=== PATIENT | male | born 1975 | race Caucasian/White ===

== ENCOUNTER 2019-07-04 15:11 | Emergency (ER) | payer BC ==
[~2019-07-04] VITALS: Ht 182.9 cm; Wt 79.3 kg
[2019-07-04 15:34] VITALS: BP 106/73
== END 2019-07-04 16:26 | disposition home or self-care (01) ==
LOC: ED 16:00
DX: R05 Cough (principal); Z20.828 Contact with and (suspected) exposure to other viral communicable diseases
CPT/HCPCS: 99281; 99283

== ENCOUNTER 2019-07-31 11:58 | Inpatient (IN) | payer BC, OTHER ==
[~2019-07-31] VITALS: Ht 182.9 cm; Wt 73.0 kg
--- NOTE | 2019-07-31 12:35 | NUR ---
PT AMBULATED WITH NORBERT FIGUEROA TO ROOM. STEADY GAIT.
--- NOTE | 2019-07-31 12:37 | NUR ---
PT PRESENTED TO ED D/T COUGH, FEVER, CHILLS. PT STATES WAS TESTED FOR COVID-19 IN JUNE AND WAS NEGATIVE. PT CURRENTLY STAYING AT [facility].
--- NOTE | 2019-07-31 12:43 | NUR ---
[facility] SWABBED PT FOR COVID-19 R/O.
--- NOTE | 2019-07-31 13:05 | NUR ---
break RN note: pt is resting on isreal romero. 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 EDTA at bedside for PIV placement.
[2019-07-31 13:23] LABS: BASOPHILS # (AUTO) 0.02 x10^3/uL (0-0.1); BASOPHILS % (AUTO) 0 % (0-1); EOSINOPHILS % (AUTO) 0 % (1-7); LYMPHOCYTES # (AUTO) 0.91 x10^3/uL (1-3.4); LYMPHOCYTES % (AUTO) 7 % (22-44); MD NO; MEAN CORPUSCULAR HEMOGLOBIN 30.1 pg (27.5-34.5); MEAN CORPUSCULAR HGB CONC 33.5 g/dL (33.2-36.2); MEAN CORPUSCULAR VOLUME 89.9 fL (81-97); MEAN PLATELET VOLUME 7.1 fL (7.4-10.4); MONOCYTES # (AUTO) 0.77 x10^3/uL (0.2-0.8); MONOCYTES % (AUTO) 6 % (2-9); NEUTROPHILS # (AUTO) 10.64 x10^3/uL (1.8-6.8); NEUTROPHILS % (AUTO) 86 % (42-75); PLATELET COUNT 317 x10^3/uL (130-400); RED BLOOD COUNT 4.73 x10^6/uL (4.38-5.82); RED CELL DISTRIBUTION WIDTH 13.6 % (9.4-14.8)
[2019-07-31 13:39] LABS: ALBUMIN 3.7 g/dL (3.4-5.0); ANION GAP 5 mmol/L (5-15); CALCIUM 8.7 mg/dL (8.5-10.1); CHLORIDE 104 mmol/L (98-107)
--- NOTE | 2019-07-31 13:39 | NUR ---
PARAG HERNANDEZ PLACED PIV. PT TBAD.
[2019-07-31 13:42] LABS: ALANINE AMINOTRANSFERASE 25 U/L (12-78); ALKALINE PHOSPHATASE 69 U/L (45-117); BILIRUBIN,TOTAL 0.8 mg/dL (0.2-1.0); TOTAL PROTEIN 7.2 g/dL (6.4-8.2)
--- NOTE | 2019-07-31 13:53 | NUR ---
PT UPDATED ON POC.
[2019-07-31] MEDS ORDERED: ACETAMINOPHEN 500 MG TABLET ONE (14:00)
--- NOTE | 2019-07-31 14:04 | NUR ---
PT MEDICATED PER EMAR.
[2019-07-31] MEDS ORDERED: ACETAMINOPHEN 500 MG TABLET PO ONE (14:30)
[2019-07-31] MEDS ORDERED: SODIUM CHLORIDE FLUSH 10ML SYR IVF PRN (14:30)
--- NOTE | 2019-07-31 14:36 | NUR ---
Marylou menezes in [facility] - 07/31/19 at 1437 by MORALES LUNCH DELIVERED TO PT.
--- NOTE | 2019-07-31 14:37 | NUR ---
LUNCH DELIVERED TO PT.
--- NOTE | 2019-07-31 15:29 | NUR ---
PT ASLEEP ON [facility].
--- NOTE | 2019-07-31 15:40 | NUR ---
ASSUMING CARE OF PT AT THIS TIME.
--- NOTE | 2019-07-31 16:00 | NUR ---
PT ASLEEP IN [facility] AT THIS TIME; JASMIN. PT VSS AND UPDATED IN EMR.
--- NOTE | 2019-07-31 16:40 | NUR ---
FAMILY CALLED FOR UPDATE OF PT. PT FAMILY EXPLAINED OF PT BEING ADMITTED AND VERBALIZES UNDERSTANDING. PER FAMILY, WILL CALL BACK.
[2019-07-31] MEDS ORDERED: ACETAMINOPHEN 325 MG TABLET PO PRN (17:00)
--- NOTE | 2019-07-31 17:15 | NUR ---
PT VSS AND UPDATED IN EMR. REPORT OF PT TO RN BRINA. ALL QUESTIONS ANSWERED. PT UPDATED ON ROOM ASSIGNMENT AT THIS TIME AND VERBALIZES UNDERSTANDING.
[2019-07-31] MEDS: ENOXAPARIN 40 MG/0.4 ML SQ SCH (17:37)
[2019-07-31 19:34] VITALS: BP 111/77
[2019-08-01 01:31] VITALS: BP 102/53
[2019-08-01 05:48] LABS: BASOPHILS # (AUTO) 0.02 x10^3/uL (0-0.1); BASOPHILS % (AUTO) 0 % (0-1); EOSINOPHILS # (AUTO) 0.02 x10^3/uL (0-0.4); EOSINOPHILS % (AUTO) 0 % (1-7); LYMPHOCYTES # (AUTO) 1.25 x10^3/uL (1-3.4); LYMPHOCYTES % (AUTO) 13 % (22-44); MD NO; MEAN CORPUSCULAR HEMOGLOBIN 30.5 pg (27.5-34.5); MEAN CORPUSCULAR HGB CONC 33.8 g/dL (33.2-36.2); MEAN CORPUSCULAR VOLUME 90.3 fL (81-97); MEAN PLATELET VOLUME 7.4 fL (7.4-10.4); MONOCYTES # (AUTO) 0.86 x10^3/uL (0.2-0.8); MONOCYTES % (AUTO) 9 % (2-9); NEUTROPHILS # (AUTO) 7.86 x10^3/uL (1.8-6.8); NEUTROPHILS % (AUTO) 79 % (42-75); PLATELET COUNT 255 x10^3/uL (130-400); RED CELL DISTRIBUTION WIDTH 13.6 % (9.4-14.8)
[2019-08-01 05:58] LABS: CHLORIDE 106 mmol/L (98-107)
[2019-08-01 05:59] LABS: ANION GAP 5 mmol/L (5-15); CALCIUM 8.7 mg/dL (8.5-10.1)
[2019-08-01 06:01] LABS: CREATININE 1.08 mg/dL (0.7-1.3)
[2019-08-01 07:05] VITALS: BP 120/73
[2019-08-01 13:03] VITALS: BP 133/71
[2019-08-01] MEDS: ENOXAPARIN 40 MG/0.4 ML SQ SCH (17:00)
[2019-08-01 19:39] VITALS: BP 102/63
[2019-08-01 20:05] LABS: MICROSCOPIC NOT IND
[2019-08-01 20:14] LABS: CULTURE INDICATED? NO
[2019-08-02 01:28] VITALS: BP 118/68
[2019-08-02 06:14] LABS: ALANINE AMINOTRANSFERASE 48 U/L (12-78); ANION GAP 6 mmol/L (5-15); CALCIUM 8.5 mg/dL (8.5-10.1); CHLORIDE 108 mmol/L (98-107); CREATININE 0.91 mg/dL (0.7-1.3)
[2019-08-02 06:18] LABS: BASOPHILS # (AUTO) 0.03 x10^3/uL (0-0.1); BASOPHILS % (AUTO) 1 % (0-1); EOSINOPHILS # (AUTO) 0.12 x10^3/uL (0-0.4); EOSINOPHILS % (AUTO) 2 % (1-7); LYMPHOCYTES # (AUTO) 1.16 x10^3/uL (1-3.4); LYMPHOCYTES % (AUTO) 21 % (22-44); MD NO; MEAN CORPUSCULAR HEMOGLOBIN 30.1 pg (27.5-34.5); MEAN CORPUSCULAR HGB CONC 33.2 g/dL (33.2-36.2); MEAN CORPUSCULAR VOLUME 90.7 fL (81-97); MEAN PLATELET VOLUME 7.5 fL (7.4-10.4); MONOCYTES # (AUTO) 0.69 x10^3/uL (0.2-0.8); MONOCYTES % (AUTO) 12 % (2-9); NEUTROPHILS % (AUTO) 64 % (42-75); PLATELET COUNT 224 x10^3/uL (130-400); RED BLOOD COUNT 4.59 x10^6/uL (4.38-5.82); RED CELL DISTRIBUTION WIDTH 13.9 % (9.4-14.8)
[2019-08-02 06:25] LABS: ALKALINE PHOSPHATASE 62 U/L (45-117); BILIRUBIN,TOTAL 0.4 mg/dL (0.2-1.0); TOTAL PROTEIN 6.8 g/dL (6.4-8.2)
[2019-08-02 07:45] VITALS: BP 116/65
== END 2019-08-02 10:25 | disposition home or self-care (01) | DRG 872 ==
LOC: ED 12:55 → EDIP 14:10 → 3E 17:30
PROVIDERS: ADMIT Internal Medicine; ATTEND Family Medicine
DX: A41.9 Sepsis, unspecified organism (principal); B34.9 Viral infection, unspecified; F10.10 Alcohol abuse, uncomplicated; F12.90 Cannabis use, unspecified, uncomplicated; F17.290 Nicotine dependence, other tobacco product, uncomplicated; R09.02 Hypoxemia; Z59.0 Homelessness; Z83.3 Family history of diabetes mellitus; Z20.828 Contact with and (suspected) exposure to other viral communicable diseases; Y90.9 Presence of alcohol in blood, level not specified
CPT/HCPCS: 36415; 71045; 80048; 80053; 81003; 82728; 83605; 83615; 84145; 85025; 85379; 86140; 87040; G0378; J1650

== ENCOUNTER 2019-12-27 11:50 | Emergency (ER) | payer BC, MEDICAID ==
[~2019-12-27] VITALS: Ht 182.9 cm; Wt 82.0 kg
[2019-12-27 11:53] VITALS: BP 131/60
== END 2019-12-27 12:41 | disposition home or self-care (01) ==
LOC: ED 12:27
DX: B35.6 Tinea cruris (principal); K62.89 Other specified diseases of anus and rectum; F17.200 Nicotine dependence, unspecified, uncomplicated
CPT/HCPCS: 99283